=== PATIENT | female | born 1945 ===

== ENCOUNTER 2025-09-23 10:35 | Outpatient (AMB) | payer MEDICARE, SELFPAY ==
--- NOTE | 2025-09-23 10:55 | MHC.OFFVIS ---
Intake Visit Reasons: 6m pd Allergies No Known Allergies Allergy (Verified 09/23/25 10:59) Medication List - Last Reconciled 09/23/25 by Isaura Holt CNP amlodipine 5 mg PO DAILY carbidopa-levodopa 25-100 mg 1 tab PO TID losartan-hydrochlorothiazide 50-12.5 mg 1 tab PO DAILY pravastatin 40 mg PO DAILY rasagiline 1 mg PO DAILY 90 days terbinafine HCl 250 mg PO DAILY HPI Comments Details: She was doing okay. She was taking carbidopa-levodopa three times a day. Tremor was stable. Intermittent left-hand tremor, worse when nervous. No tremor in right hand or legs.?No functional impairment. No difficulty eating, drinking, or swallowing. She is right-handed and handwriting was not as neat. Balance was okay, no falls. No difficulty turning in bed or getting up from chair. Her told her that she was sometimes yelling and kicking in her sleep. [facility] Medical History (Updated 09/23/25 @ 11:08 by Isaura Holt CNP) Hyperlipidemia Hypertension Parkinson disease Review of Systems Const Denies chills, Denies daytime sleepiness, Denies difficulty sleeping, Denies fatigue, Denies fever(s), Denies frequent falls, Denies headache(s), Denies increased appetite, Denies poor appetite, Denies snoring, Denies weakness, Denies weight gain and Denies weight loss Eyes Denies loss of vision ENT Denies vertigo, Denies dizziness, Denies headache(s) and Denies neck pain Card Denies chest pain at rest, Denies chest pain with activity, Denies syncope, Denies leg edema, Denies palpitations, Denies dyspnea and Denies dyspnea on exertion Resp Denies cough, Denies dyspnea, Denies dyspnea on exertion and Denies snoring GI Denies abdominal pain, Denies constipation, Denies heartburn, Denies diarrhea and Denies nausea Denies urinary frequency, Denies urinary incontinence and Denies urinary urgency Musc Denies abnormal gait, Denies back pain, Denies myalgias, Denies arthralgias, Denies neck pain, Denies numbness and Denies tingling Neuro Denies abnormal gait, Denies vertigo, Denies dizziness, Denies syncope, Denies frequent falls, Denies headache(s), Denies lack of coordination, Denies loss of vision, Denies memory loss, Denies numbness, Denies Other visual disturbances, Denies restless legs, Denies seizure-like activity, Denies tingling, Denies paresthesias, Reports tremor(s) and Denies weakness Psych Denies anxiety, Denies depression, Denies auditory hallucinations, Denies memory loss and Denies visual hallucinations Endo Denies fatigue and Denies palpitations Physical Exam Const Other: General Appearance:? normal, in no acute distress. Heart:? S1, S2 normal, no murmurs. Lungs:? clear anteriorly and posteriorly. Musculoskeletal:? normal. Extremities:? no edema. Psych:? alert, oriented, cognitive function intact, cooperative with exam. Neuro Other: Abnormal Neurological Findings:?Mildly decreased facial expressions. Slightly stooped posture. Intermittent typical Parkinsonian tremor of the left hand with pill rolling movements at 4Hz frequency. Slight increase in tone to LUE. Mental Status: alert and oriented X 3. Normal attention, orientation, memory, and affect. Cranial Nerves: Pupils are equal, round, and reactive to light. External ocular muscles are intact. Visual abdi are full, no ptosis. Face is symmetrical, no facial weakness or droop. Facial sensations are normal. Tongue protrudes in midline. Palate elevates symmetrically. Shoulder shrugging is normal Motor Examination: Normal muscle tone, bulk and strength. No atrophy or fasciculations. No drift of the extended upper extremities. DTR 2+. Plantars are flexor. Sensory Exam: Normal light touch, temperature, pinprick, vibration, and joint-position sensations. Rhomberg sign is absent. Coordination: No ataxia. No titubation. Gait Exam: As above. Cerebellar Signs: [id number] is okay. Extrapyramidal System: As above. Speech: Normal. Assessment & Plan Assessment & Plan (1) Parkinson disease: Code(s): G20.A1 - Parkinson's disease without dyskinesia, without mention of fluctuations Category: Medical Qualifiers: Dyskinesia presence: without dyskinesia Fluctuating manifestations: without fluctuating manifestations Qualified Code(s): G20.A1 - Parkinson's disease without dyskinesia, without mention of fluctuations Plan: Continue carbidopa-levodopa 25-100mg 1 tablet three times a day. Continue rasagiline 1mg 1 tablet daily. Follow up in 6 months or sooner as needed. (2) REM sleep behavior disorder: Code(s): G47.52 - REM sleep behavior disorder Category: Medical Plan: She was not interested in trying medication at this time. Medications: New carbidopa-levodopa 25-100 mg 1 tab PO TID 270 tabs 1RF 90 days Refilled rasagiline 1 mg PO DAILY 90 tabs 1RF 90 days Coding Level of Care Code Est Pt Level 4 (61772) Diagnoses Parkinson's disease without dyskinesia or fluctuating manifestations G20.A1 Dyskinesia presence: without dyskinesia Fluctuating manifestations: without fluctuating manifestations REM sleep behavior disorder G47.52
== END 2025-09-23 11:08 | disposition home or self-care (01) ==
LOC: HO.HSM 10:36
PROVIDERS: PCP Internal Medicine; Referring Provider Neurological Surgery; Visit Provider Registered Nurse
DX: G20.A1 Parkinson's disease without dyskinesia, without mention of fluctuations (principal); G47.52 REM sleep behavior disorder
CPT/HCPCS: 99214

== ENCOUNTER → 2025-09-23 10:35 | Outpatient (BNVA) | payer MEDICARE, SELFPAY | PROVIDERS: PCP Internal Medicine; Referring Provider Neurological Surgery; Visit Provider Registered Nurse | DX: G20.A1 Parkinson's disease without dyskinesia, without mention of fluctuations (principal); G47.52 REM sleep behavior disorder; Z79.899 Other long term (current) drug therapy | CPT/HCPCS: 99212 ==